=== PATIENT | male | born 1950 | race Caucasian/White ===

== ENCOUNTER 2016-10-01 23:29 | Emergency (ER) | payer MEDICARE, OTHER ==
[~2016-10-01] VITALS: Ht 190.5 cm; Wt 108.9 kg
[2016-10-01 23:40] VITALS: BP 163/107
== END 2016-10-02 01:05 | disposition left against medical advice (07) ==
LOC: ER 23:29
DX: K62.5 Hemorrhage of anus and rectum (principal); Z53.21 Procedure and treatment not carried out due to patient leaving prior to being seen by health care provider